=== PATIENT | male | born 1980 | race African-American/Black ===

== ENCOUNTER 2020-12-12 11:54 | Emergency (ER) | payer BC ==
[2020-12-12 12:01] VITALS: TEMP 98.2; BMI 19.3
[2020-12-12] MEDS ORDERED: ACETAMINOPHEN 1000 MG/100 ML VIAL (NON FORMULARY) IVPB ONE (12:46)
[2020-12-12] MEDS ORDERED: SODIUM CHLORIDE 1,000 ML IV STA (12:46)
[2020-12-12] MEDS ORDERED: ACETAMINOPHEN INJECTION 100 ML IVPB ONE (13:18)
[2020-12-12 14:17] LABS: BASO % 0.8 % (0-2.0); EOS % 1.3 % (0-4.5); HEMATOCRIT 31.1 % (35.4-49); HEMOGLOBIN 9.7 GM/dL (11.7-16.9); LYMPH % 19.3 % (8-40); MCH 20.4 pg (25.7-33.7); MCHC 31.1 g/dl (32.0-35.9); MEAN CELL VOLUME 65.6 fl (80-96); MEAN PLT VOLUME 8.2 fl (7.5-11.1); MONO % 14.1 % (3.8-10.2); NEUT % 64.5 % (42.8-82.8); PLATELET COUNT 468 K/MM3 (134-434); RBC 4.74 M/mm3 (4.00-5.60); RDW 21.5 % (11.9-15.9)
[2020-12-12 14:24] LABS: INR 1.08 (0.83-1.09); PROTHROMBIN TIME (PATIENT) 13.2 SEC (9.7-13.0)
[2020-12-12 14:39] LABS: CHLORIDE 105 mmol/L (98-107); SODIUM 138 mmol/L (136-145)
[2020-12-12 14:41] LABS: CALCIUM 9.2 mg/dL (8.5-10.1)
[2020-12-12 14:42] LABS: ALBUMIN 3.5 g/dl (3.4-5.0); ANION GAP 7 MMOL/L (8-16); ANISOCYTOSIS 2+; BLOOD UREA NITROGEN 4.8 mg/dL (7-18); CO2 26 mmol/L (21-32); GLUCOSE,RANDOM 86 mg/dL (74-106); MACROCYTOSIS 0; MAGNESIUM 2.1 mg/dL (1.8-2.4); PLATELET ESTIMATE NORMAL; TARGET CELLS 2+; TEAR DROP CELLS 1+
[2020-12-12 14:45] LABS: CREATININE 0.8 mg/dL (0.55-1.3); SGOT/AST 23 U/L (15-37); SGPT/ALT 13 U/L (13-61)
[2020-12-12 14:46] LABS: BILIRUBIN,TOTAL 0.2 mg/dL (0.2-1); TOT PROT 9.4 g/dl (6.4-8.2)
[2020-12-12 14:48] LABS: ALK PHOS 89 U/L (45-117)
[2020-12-12] MEDS ORDERED: KETOROLAC TROMETHAMINE 60 MG/2 ML VIAL IVPUSH ONE (14:58)
[2020-12-12 15:54] VITALS: BP 109/73; PULSE 63
== END 2020-12-12 15:40 | disposition home or self-care (01) ==
LOC: JER 11:54
PROC: 3E0333Z Introduction of Anti-inflammatory into Peripheral Vein, Percutaneous Approach (ICD-10-PCS; principal; 2020-12-12)
PROC: 3E0333Z Introduction of Anti-inflammatory into Peripheral Vein, Percutaneous Approach (ICD-10-PCS; 2020-12-12)
PROC: 3E0337Z Introduction of Electrolytic and Water Balance Substance into Peripheral Vein, Percutaneous Approach (ICD-10-PCS; 2020-12-12)
DX: R07.9 Chest pain, unspecified (principal)
CPT/HCPCS: 36415; 71046-TC-FY; 80053; 82550; 83735; 84443; 84484; 85025; 85610; 93005; 93010; 99285-25; J0131